=== PATIENT | female | born 1930 | race Caucasian/White ===

== ENCOUNTER 2018-05-12 03:21 | Observation (INO) | payer OTHER ==
--- OUTSIDE RECORDS SUMMARY | 2018-05-12 03:23 | XMS REPORT ---
:1930 [facility] Address [address] [place] [address] [place] [address] Care Team Providers Name Role Phone MIKAYLA ANNE Unavailable Unavailable Problems This patient has no known problems. Allergies, Adverse Reactions, Alerts This patient has no known allergies or adverse reactions. Medications This patient has no known medications. Results Test Description Test Time Test Comments Text Results Atomic Results Result Comments CT BRAIN [place] [address] Patient Name: TAI TOVAR MR #: [id number] : 1930 Age/Sex: 87/F Req #: [id number] Adm Physician: Ordered by: MIKAYLA ANNE MD Report #: [id number] Location: ER Room/Bed: Procedure: [id number] CT/CT BRAIN WO Exam Date: Exam Time: REPORT STATUS: Signed EXAMINATION: Head CT HISTORY: Chest pain COMPARISON: None. TECHNIQUE: Multidetector axial images were obtained without contrast from the foramen magnum to the vertex . The images were reconstructed using brain and bone algorithms. Thin section brain images were reformatted into coronal and sagittal planes. Intravenous contrast: None. Motion/streaking artifact limits the evaluation of the skull base and posterior cranial fossa. FINDINGS: Parenchyma: 1. Wedge-shaped cortico-subcortical hypodensity and volume loss/encephalomalacia in the right lateral occipito-temporal/inferior parietal region, likely sequela from remote infarct. 2. Few scattered and mildly confluent periventricular white matter hypodensities, most likely nonspecific chronic microvascular ischemic changes. 3. No mass or hemorrhage. No CT evidence of acute territorial vascular insult. Extra-axial spaces:No abnormal density. No extra-axial fluid collections Brain volume: Normal for age. Ventricles: No hydrocephalus or displacement. Arteries: No density suggestive of thrombus. Dural sinuses: No abnormal density. Extra-axial spaces: No abnormal density. Foramen magnum: No mass, Chiari malformation, or basilar invagination. Sella: No obvious mass. Paranasal/mastoid sinuses: Imaged portions unremarkable. Skull/Scalp: No lytic or blastic lesions. No fractures. IMPRESSION: 1. No acute intracranial hemorrhage or cortical infarcts. 2. Chronic right occipito-temporal infarct. 3. Mild white matter chronic microvascular ischemic changes. Signed by: Dr. Marcello Berman M.D. on 07/20/2017 12:35 AM Dictated By: MARCELLO BERMAN MD Transcribed By: JOSE on 07/20/1734 COPY TO: MIKAYLA ANNE MD [place] [address] Patient Name: TAI TOVAR MR #: [id number] : 1930 Age/Sex: 87/F E) Req #: [id number] Adm Physician: Ordered by: MIKAYLA ANNE MD Report #: [id number] Location: ER Room/Bed: Procedure: [id number] DX/CHEST SINGLE (PORTABLE) Exam Date: Exam Time: REPORT STATUS: Signed EXAM: CHEST SINGLE (PORTABLE), AP 1 view DATE: 07/19/2017 11:37 PM Time stamp on exam: 0013 hours INDICATION: Shortness of breath COMPARISON: None FINDINGS: LINES/TUBES: None LUNGS: Nonspecific bronchial thickening and bibasilar atelectasis. PLEURA: Possible small left pleural effusion. HEART AND MEDIASTINUM: The heart is within normal size limits for technique. Widening of the right paratracheal stripe is likely due to ectatic vasculature. Calcifications of the thoracic aorta. BONES AND SOFT TISSUES: No acute findings. IMPRESSION: Nonspecific bronchial thickening and bibasilar atelectasis. Possible small left pleural effusion. Findings could indicate mild fluid overload. Signed by: Dr. Harper Garcia M.D. on 07/20/2017 12:34 AM Dictated By: HARPER GARCIA MD Transcribed By: JOSE on 07/20/1733 COPY TO: MIKAYLA ANNE MD
[2018-05-12 03:53] LABS: Absolute Lymphocytes (CBC) 1.7 K/uL (0.7-4.9); Absolute Monocytes 0.6 K/uL (0.1-1.3); Absolute Neutrophil 6.6 K/uL (1.8-8.0); Basophils % 0.8 % (0-1.3); Eosinophils % 1.6 % (0-4.4); Hematocrit 33.4 % (36.0-45.0); Lymphocytes % 18.3 % (15.3-44.8); MCV 92.1 fL (80-100); MPV 8.3 fL (7.6-11.3); Monocytes % 6.6 % (3.3-12.3); RBC Red Blood Cell Count 3.63 M/uL (3.86-4.86)
[2018-05-12 03:54] LABS: Protime INR 1.39
[2018-05-12 04:13] LABS: Magnesium 1.8 mg/dL (1.8-2.4); Potassium 4.9 mmol/L (3.5-5.1)
--- NOTE | 2018-05-12 04:17 | ER ---
Nurse's Notes [facility] Name: Louise Khan Age: 87 yrs Sex: Female : 1930 Arrival Date: 05/12/2018 Time: 03:34 Bed 3 Private MD: Diagnosis: Cerebral infarction;Atrial fibrillation and flutter;Type 2 diabetes mellitus;Essential (primary) hypertension Presentation: 05/12 03:26 Presenting complaint: EMS states: that they were toned for blood sugar problems. Pt fc also complained of severe headache. Pt having left arm weakness with drift. BP of 196/110 with heart rate of 82. Pt on Cipro for UTI. Transition of care: patient was not received from another setting of care. An acute neurological deficit is present. The charge nurse has been notified. The patient has been moved to a treatment area. The patients blood glucose was checked prior to arriving to the hospital and was found to be hyperglycemic. The patient has been moved to a treatment room. Onset of symptoms was May 11, 2018 at 18:00. Risk Assessment: Do you want to hurt yourself or someone else? Patient reports no desire to harm self or others. Initial Sepsis Screen: Does the patient meet any 2 criteria? No. Patient's initial sepsis screen is negative. Does the patient have a suspected source of infection? No. Patient's initial sepsis screen is negative. Care prior to arrival: IV initiated. 20 GA, in the right antecubital area, Glucose check: 202. 03:26 Method Of Arrival: EMS: [facility] 03:26 Acuity: ZOE 2 fc Triage Assessment: 03:30 The onset of the patients symptoms was May 11, 2018 at 18:00. aa1 Stroke Activation: Symptom onset > 6 hours Physician: Stroke Attending; Name: ; Notified At: ; Arrived At: Physician: Chief Stroke Resident; Name: ; Notified At: ; Arrived At: Physician: Stroke Resident; Name: ; Notified At: ; Arrived At: Physician: ED Attending; Name: Warren; Notified At: 03:26; Arrived At: 03:26 Physician: ED Resident; Name: ; Notified At: ; Arrived At: Historical: - Allergies: 03:54 GARLIC; aa1 03:54 Sulfa (Sulfonamide Antibiotics); aa1 03:58 GARLIC; fc 03:58 Sulfa (Sulfonamide Antibiotics); fc - Home Meds: 03:58 Xarelto 15 mg oral tab daily [Active]; diclofenac sodium 25 mg oral TbEC 1 tab 2 times fc per day [Active]; cranberry oral oral three times a day [Active]; Fish Oil oral 1200 mg oral twice a day [Active]; calcium 600 mg twice a day [Active]; Vitamin B-12 100 mcg Oral tab daily [Active]; Evista 60 mg Oral tab 1 tab at lunch [Active]; lisinopril 20 mg Oral tab 1 tab once daily [Active]; glimepiride 4 mg Oral tab .5 tab at lunch time [Active]; atorvastatin 40 mg oral tab 1 tab at lunch [Active]; Senior Silver Centrum daily [Active]; Cinnamon 500 mg oral cap with dinner [Active]; atenolol 50 mg Oral tab 1 tab nightly [Active]; aspirin 81 mg Oral TbEC 2 tabs nightly [Active]; Vitamin C 500 mg Oral tab nightly [Active]; Benadryl 25 mg Oral cap 2 caps bedtime prn [Active]; - PMHx: 03:54 Atrial Fib; Diabetes - NIDDM; High Cholesterol; Hypertension; aa1 03:58 Atrial Fib; Diabetes - NIDDM; High Cholesterol; Hypertension; fc - PSHx: 03:54 Hernia repair; aa1 03:58 Cholecystectomy; Hernia repair; fc - Immunization history:: Last tetanus immunization: unknown, Pneumococcal vaccine is up to date. - Social history:: Smoking status: Patient/guardian denies using tobacco. - Ebola Screening: : Patient negative for fever greater than or equal to 101.5 degrees Fahrenheit, and additional compatible Ebola Virus Disease symptoms Patient denies exposure to infectious person Patient denies travel to an Ebola-affected area in the 21 days before illness onset. - Family history:: not pertinent. Screenin:28 The patient has not been NPO before screening. The patient is currently on the fc following diet: diabetic The patient is alert, able to follow commands. The patient does not exhibit slurred or garbled speech The patient is not exhibiting difficulty speaking. The patient does not exhibit difficulty understanding words. The patient is able to swallow own secretions with no drooling or need for suction. Patient tolerated one teaspoon of water. No drooling, immediate coughing, gurgling, or clearing of the throat was noted. The patient tolerated 90mL of water. No drooling, immediate coughing, gurgling, or clearing of the throat was noted. The patient passed the bedside swallow screening. Oral medications may be given as ordered. Contact Physician for further diet orders. Provider notified of bedside swallow screening results: Jose F Kelley MD. 03:44 Abuse screen: Denies threats or abuse. Nutritional screening: No deficits noted. fc Tuberculosis screening: No symptoms or risk factors identified. Fall Risk None identified. Assessment: 03:28 The patient has not been NPO before screening. The patient is alert, and able to follow commands. The patient does not exhibit slurred or garbled speech. The patient is not exhibiting difficulty speaking. The patient does not exhibit difficulty understanding words. The patient is able to swallow own secretions with no drooling or need for suction. Patient tolerated one teaspoon of water. No drooling, immediate coughing, gurgling, or clearing of the throat was noted. The patient tolerated 90mL of water. No drooling, immediate coughing, gurgling, or clearing of the throat was noted. The patient passed the bedside swallow screening. Oral medications may be given as ordered. Contact Physician for further diet orders. Provider notified of bedside swallow screening results: Jose F Kelley MD. 03:43 Reassessment: Patient appears in no apparent distress at this time. Pt back from CT. aa1 03:45 T-PA (Activase) Screening: Contraindications: Patient reports onset of signs and aa1 symptoms of stroke greater than 6 hours ago: Yes. Is the patient on Aspirin, Heparin, or Warfarin: Yes. Is the patient on a "statin" medication: Yes. 03:54 General: Appears in no apparent distress. comfortable, Behavior is calm, cooperative, aa1 appropriate for age. Pain: Complains of pain in head Pain currently is 9 out of 10 on a pain scale. Quality of pain is described as aching, throbbing, Pain began 1800 yesterday Is continuous. Neuro: Level of Consciousness is awake, alert, obeys commands, Oriented to person, place, time, situation, Principal Network Engineer are equal bilaterally Moves all extremities. Speech is normal, Facial droop on left, Pupils are PERRLA, Reports headache Denies blurred vision dizziness, paresthesias numbness photophobia. Cardiovascular: Denies chest pain, palpitations, Heart tones S1 S2 present Rhythm is regular. Respiratory: Airway is patent Respiratory effort is even, unlabored, Respiratory pattern is regular, symmetrical. GI: No signs and/or symptoms were reported involving the gastrointestinal system. : No signs and/or symptoms were reported regarding the genitourinary system. EENT: No signs and/or symptoms were reported regarding the EENT system. Derm: Skin is fragile, is thin, Skin is pink, warm \\T\\ dry. Musculoskeletal: Circulation, motion, and sensation intact. Capillary refill < 3 seconds. 04:30 Reassessment: Patient appears in no apparent distress at this time. Patient and/or aa1 family updated on plan of care and expected duration. Pain level reassessed. Patient is alert, oriented x 3, equal unlabored respirations, skin warm/dry/pink. Awaiting CT head angio. 04:35 Reassessment: Pt has received bed assignment but has not gone for additional CT yet. aa1 05:00 Reassessment: Pt uncooperative for additional CT. Will not lay on table and is aa1 screaming for staff to let her up. States, "I need some water to wash my mouth out and I just need to sit up for a minute." Pt pulling off monitoring equipment and attempting to climb off CT table. Unable to complete exam at this time. MD notified. 05:34 Reassessment: Patient appears in no apparent distress at this time. Patient is alert, aa1 oriented x 3, equal unlabored respirations, skin warm/dry/pink. Pt finished using restroom after sitting on the toilet for 30 mins. States she will attempt to do CT scan again if she can have a cough drop from her first. Pt taken to CT to reattempt scan. 05:55 Reassessment: Patient appears in no apparent distress at this time. Pt back from CT and aa1 was again unable to complete test. Pt refusing to lay flat on table despite MD stressing importance of completing exam. 06:08 Reassessment: Patient appears in no apparent distress at this time. Patient and/or aa1 family updated on plan of care and expected duration. Pain level reassessed. Patient is alert, oriented x 3, equal unlabored respirations, skin warm/dry/pink. Dr. Reveles at bedside for pt evaluation for admission. 06:20 Reassessment: Patient appears in no apparent distress at this time. Patient is alert, aa1 oriented x 3, equal unlabored respirations, skin warm/dry/pink. Report given to Nerissa Sky RN. Vital Signs: 03:26 BP 187 / 125; Pulse 79; Resp 18; Pulse Ox 97% on R/A; Weight 71.67 kg (R); Height 5 ft. fc 2 in. (157.48 cm) (R); Pain 6/10; 03:30 Temp 97.8(O); aa1 03:53 BP 186 / 101; Pulse 89; Resp 22; Pulse Ox 100% on R/A; Pain 9/10; aa1 04:30 BP 175 / 85; Pulse 94; Resp 16; Pulse Ox 97% on R/A; Pain 8/10; aa1 06:00 BP 177 / 87; Pulse 93; Resp 18; Pulse Ox 97% on R/A; Pain 0/10; aa1 03:26 Body Mass Index 28.90 (71.67 kg, 157.48 cm) fc NIH Stroke Scale Scores: 04:07 NIHSS Score: 3 bebeto ED Course: 03:26 Arm band placed on Patient placed in an exam room, on a stretcher, on personnel monitor, fc on pulse oximetry. 03:26 Patient has correct armband on for positive identification. Placed in gown. Bed in low aa1 position. Side rails up X2. bus monitor on. Pulse ox on. NIBP on. 03:26 Maintain EMS IV. Dressing intact. Good blood return noted. Site clean \\T\\ dry. Gauge \\T\\ fc site: 20 gauge to right a/c. 03:29 EKG done, by ED staff, reviewed by Jose F Kelley MD. aa1 03:34 Patient arrived in ED. ak1 03:34 Jose F Kelley MD is Attending Physician. bebeto 03:40 CT Stroke Brain w/o Contrast In Process Unspecified. EDMS 03:40 CT completed. Pt tolerated procedure poorly. Patient moved to CT via stretcher. Patient eh moved back from CT. 03:42 Lisa Lee, VALERIE is Primary Nurse. aa1 03:43 Triage completed. fc 03:45 Stroke CXR 1 View In Process Unspecified. EDMS 04:15 Bebe García MD is Hospitalizing Provider. bebeto 06:09 No provider procedures requiring assistance completed. Patient admitted, IV remains in aa1 place. Administered Medications: 04:25 Drug: NS 0.9% 500 ml Route: IV; Rate: bolus; Site: right antecubital; aa1 06:20 Follow up: IV Status: Completed infusion aa1 04:25 Drug: foLIC Acid 1 mg Route: IVPB; Site: right antecubital; aa1 06:19 Follow up: IV Status: Completed infusion aa1 04:30 Drug: Zofran 4 mg Route: IVP; Site: right antecubital; aa1 06:08 Follow up: Response: No adverse reaction; Nausea is decreased aa1 Point of Care Testing: Blood Glucose: 03:29 Blood Glucose: 197 mg/dL; fc Ranges: Outcome: 04:16 Decision to Hospitalize by Provider. bebeto 06:20 Admitted to Tele accompanied by nurse, accompanied by tech, family with patient, via aa1 wheelchair, room 428, with chart, Report called to Nerissa Sky RN 06:20 Condition: stable 06:20 Instructed on the need for admit, Demonstrated understanding of instructions. 06:26 Patient left the ED. aa1 NIH Stroke Scale - NIH Stroke Score Date: 05/12/2018 Time: 04:07 Total Score = 3 1a. Level of Consciousness (LOC) - 0(Alert) 1b. Level of Consciousness (LOC) (Year \\T\\ Age) - 0(Both) 1c. LOC Commands (Open \\T\\ Closes Eyes/Vinyl Cutter) - 0(Both) 2. Best Gaze (Lateral Gaze Paresis) - 0(Normal) 3. Visual Field Loss - 0(No visual loss) 4. Facial Palsy - 0(Normal) 5a. Left Arm: Motor (10-second hold) - 1(Drift) 5b. Right Arm: Motor (10-second hold) - 0(No drift) 6a. Left Leg: Motor (5-second hold - always test supine) - 0(No drift) 6b. Right Leg: Motor (5-second hold - always test supine) - 0(No drift) 7. Limb Ataxia (finger/nose \\T\\ heel/rico - test with eyes open) - 1(Present in one limb) 8. Sensory Loss (pinprick arms/legs/face) - 0(Normal) 9. Best Language: Aphasia (description/naming/reading) - 0(No aphasia) 10. Dysarthria (speech clarity - read or repeat words) - 0(Normal) 11. Extinction and Inattention (visual/tactile/auditory/spatial/personal) - 1(Present) Initials: bebeto Signatures: Dispatcher [employer] Lisa Raymond RN RN aa1 Jose F Kelley MD MD cha Hagler, Ervin eh Chretien, Felicia, RN RN fc Alisia Diaz RN RN ak1
--- NOTE | 2018-05-12 04:17 | EDPHYS ---
Physician Documentation [facility] Name: Louise Khan Age: 87 yrs Sex: Female : 1930 Arrival Date: 05/12/2018 Time: 03:34 Bed 3 Private MD: ED Physician Jose F Kelley HPI: 05/12 03:56 This 87 yrs old Female presents to ER via EMS with complaints of S/S of bebeto Possible Stroke. 03:56 This 87 yrs old Female presents to ER via EMS with complaints of S/S of bebeto Possible Stroke. 03:56 The patient's problem is reported as a facial droop, on left, dysphasia, slow speech, bebeto expressive aphasia. Onset: The symptoms/episode began/occurred 9 hour(s) ago. Duration: The episode is continuous. Context: the episode(s) was witnessed, by family, . The symptoms are alleviated by nothing. The symptoms are aggravated by nothing. Associated signs and symptoms: The patient has no apparent associated signs or symptoms. Severity of symptoms: At their worst the symptoms were mild in the emergency department the symptoms are unchanged. Patient's baseline: Neuro: alert and fully oriented. The patient has not experienced similar symptoms in the past. Historical: - Allergies: 03:54 GARLIC; aa1 03:54 Sulfa (Sulfonamide Antibiotics); aa1 03:58 GARLIC; fc 03:58 Sulfa (Sulfonamide Antibiotics); fc - Home Meds: 03:58 Xarelto 15 mg oral tab daily [Active]; diclofenac sodium 25 mg oral TbEC 1 tab 2 times fc per day [Active]; cranberry oral oral three times a day [Active]; Fish Oil oral 1200 mg oral twice a day [Active]; calcium 600 mg twice a day [Active]; Vitamin B-12 100 mcg Oral tab daily [Active]; Evista 60 mg Oral tab 1 tab at lunch [Active]; lisinopril 20 mg Oral tab 1 tab once daily [Active]; glimepiride 4 mg Oral tab .5 tab at lunch time [Active]; atorvastatin 40 mg oral tab 1 tab at lunch [Active]; Senior Silver Centrum daily [Active]; Cinnamon 500 mg oral cap with dinner [Active]; atenolol 50 mg Oral tab 1 tab nightly [Active]; aspirin 81 mg Oral TbEC 2 tabs nightly [Active]; Vitamin C 500 mg Oral tab nightly [Active]; Benadryl 25 mg Oral cap 2 caps bedtime prn [Active]; - PMHx: 03:54 Atrial Fib; Diabetes - NIDDM; High Cholesterol; Hypertension; aa1 03:58 Atrial Fib; Diabetes - NIDDM; High Cholesterol; Hypertension; fc - PSHx: 03:54 Hernia repair; aa1 03:58 Cholecystectomy; Hernia repair; fc - Immunization history:: Last tetanus immunization: unknown, Pneumococcal vaccine is up to date. - Social history:: Smoking status: Patient/guardian denies using tobacco. - Ebola Screening: : Patient negative for fever greater than or equal to 101.5 degrees Fahrenheit, and additional compatible Ebola Virus Disease symptoms Patient denies exposure to infectious person Patient denies travel to an Ebola-affected area in the 21 days before illness onset. - Family history:: not pertinent. ROS: 03:56 Constitutional: Negative for fever, chills, and weight loss, Eyes: Negative for injury, bebeto pain, redness, and discharge, ENT: Negative for injury, pain, and discharge, Neck: Negative for injury, pain, and swelling, Cardiovascular: Negative for chest pain, palpitations, and edema, Respiratory: Negative for shortness of breath, cough, wheezing, and pleuritic chest pain, Abdomen/GI: Negative for abdominal pain, nausea, vomiting, diarrhea, and constipation, Back: Negative for injury and pain, : Negative for injury, bleeding, discharge, and swelling, MS/Extremity: Negative for injury and deformity, Skin: Negative for injury, rash, and discoloration, Psych: Negative for depression, anxiety, suicide ideation, homicidal ideation, and hallucinations, Allergy/Immunology: Negative for hives, rash, and allergies, Endocrine: Negative for neck swelling, polydipsia, polyuria, polyphagia, and marked weight changes, Hematologic/Lymphatic: Negative for swollen nodes, abnormal bleeding, and unusual bruising. 03:56 Neuro: Positive for weakness, of the face, left arm and left leg. Exam: 03:56 Radiologist reports: see report, no blood, old changes bebeto 03:56 Constitutional: This is a well developed, well nourished patient who is awake, alert, and in no acute distress. Eyes: Pupils equal round and reactive to light, extra-ocular motions intact. Lids and lashes normal. Conjunctiva and sclera are non-icteric and not injected. Cornea within normal limits. Periorbital areas with no swelling, redness, or edema. ENT: Nares patent. No nasal discharge, no septal abnormalities noted. Tympanic membranes are normal and external auditory canals are clear. Oropharynx with no redness, swelling, or masses, exudates, or evidence of obstruction, uvula midline. Mucous membranes moist. Neck: Trachea midline, no thyromegaly or masses palpated, and no cervical lymphadenopathy. Supple, full range of motion without nuchal rigidity, or vertebral point tenderness. No Meningismus. Chest/axilla: Normal chest wall appearance and motion. Nontender with no deformity. No lesions are appreciated. Cardiovascular: Regular rate and rhythm with a normal S1 and S2. No gallops, murmurs, or rubs. Normal PMI, no JVD. No pulse deficits. Respiratory: Lungs have equal breath sounds bilaterally, clear to auscultation and percussion. No rales, rhonchi or wheezes noted. No increased work of breathing, no retractions or nasal flaring. Abdomen/GI: Soft, non-tender, with normal bowel sounds. No distension or tympany. No guarding or rebound. No evidence of tenderness throughout. Back: No spinal tenderness. No costovertebral tenderness. Full range of motion. Female : Normal external genitalia. Skin: Warm, dry with normal turgor. Normal color with no rashes, no lesions, and no evidence of cellulitis. Psych: Awake, alert, with orientation to person, place and time. Behavior, mood, and affect are within normal limits. 03:56 Head/face: Exam is negative for acute changes. 03:56 Musculoskeletal/extremity: ROM: limited active range of motion, in the left arm. 03:56 Neuro: Orientation: is normal, appropriate for stated age, no acute changes, Mentation: is normal, appropriate for stated age, no acute changes, Memory: is normal, appropriate for stated age, no acute changes, Cranial nerves: grossly normal, is grossly normal based on the patient's age, no acute changes, Cerebellar function: dysmetria is noted on the left, Motor: moves all fours, strength is 4/5 in the left arm and left leg, Gait: not tested. Deep tendon reflexes are 2+ (normal) in the bilateral brachioradialis, bicep, tricep and patellar and Achilles tendons, seizure activity, is not displayed by the patient. Vital Signs: 03:26 BP 187 / 125; Pulse 79; Resp 18; Pulse Ox 97% on R/A; Weight 71.67 kg (R); Height 5 ft. fc 2 in. (157.48 cm) (R); Pain 6/10; 03:30 Temp 97.8(O); aa1 03:53 BP 186 / 101; Pulse 89; Resp 22; Pulse Ox 100% on R/A; Pain 9/10; aa1 04:30 BP 175 / 85; Pulse 94; Resp 16; Pulse Ox 97% on R/A; Pain 8/10; aa1 06:00 BP 177 / 87; Pulse 93; Resp 18; Pulse Ox 97% on R/A; Pain 0/10; aa1 03:26 Body Mass Index 28.90 (71.67 kg, 157.48 cm) NIH Stroke Scale Scores: 04:07 NIHSS Score: 3 bebeto MDM: 03:34 Patient medically screened. bebeto 03:56 Data reviewed: vital signs, nurses notes, lab test result(s), EKG, radiologic studies, [facility] CT scan, plain films. 05/12 03:35 Order name: Troponin (emerg Dept Use Only); Complete Time: 05:22 [facility] 05/12 03:35 Order name: Magnesium; Complete Time: 05:22 [facility] 05/12 03:35 Order name: Basic Metabolic Panel; Complete Time: 05:22 [facility] 05/12 03:35 Order name: CBC with Diff; Complete Time: 03:55 [facility] 05/12 03:35 Order name: Protime (+inr); Complete Time: 04:06 [facility] 05/12 03:35 Order name: Ptt, Activated; Complete Time: 04:06 [facility] 05/12 03:35 Order name: CT Stroke Brain w/o Contrast [facility] 05/12 03:35 Order name: Stroke CXR 1 View [facility] 05/12 04:09 Order name: Head angio [facility] 05/12 05:31 Order name: Urine Dipstick--Ancillary (enter results) rg2 05/12 06:00 Order name: Urine Dipstick-Ancillary [facility] 05/12 03:35 Order name: EKG; Complete Time: 03:35 05/12 03:35 Order name: Accucheck; Complete Time: 03:41 05/12 03:35 Order name: Cardiac monitoring; Complete Time: 03:41 05/12 03:35 Order name: EKG - Nurse/Tech; Complete Time: 03:41 05/12 03:35 Order name: IV Saline Lock; Complete Time: 03:41 05/12 03:35 Order name: Labs collected and sent; Complete Time: 03:41 05/12 03:35 Order name: NPO; Complete Time: 03:41 05/12 03:35 Order name: O2 Per Protocol; Complete Time: 03:42 05/12 03:35 Order name: O2 Sat Monitoring; Complete Time: 03:42 05/12 03:35 Order name: Stroke Swallow Screen; Complete Time: 03:42 05/12 03:35 Order name: Urine Dipstick-Ancillary (obtain specimen); Complete Time: 05:59 05/12 04:21 Order name: CONS Physician Consult EDMS Administered Medications: 04:25 Drug: NS 0.9% 500 ml Route: IV; Rate: bolus; Site: right antecubital; aa1 06:20 Follow up: IV Status: Completed infusion aa1 04:25 Drug: foLIC Acid 1 mg Route: IVPB; Site: right antecubital; aa1 06:19 Follow up: IV Status: Completed infusion aa1 04:30 Drug: Zofran 4 mg Route: IVP; Site: right antecubital; aa1 06:08 Follow up: Response: No adverse reaction; Nausea is decreased aa1 Point of Care Testing: Blood Glucose: 03:29 Blood Glucose: 197 mg/dL; fc Ranges: Critical Glucose Levels:Adult <50 mg/dl or >400 mg/dl <40 mg/dl or >180 mg/dl Disposition: 05/12/18 04:16 Hospitalization ordered by Bebe García for Inpatient Admission. Preliminary diagnosis are Cerebral infarction, Atrial fibrillation and flutter, Type 2 diabetes mellitus, Essential (primary) hypertension. - Bed requested for Telemetry/MedSurg (Inpatient). - Status is Inpatient Admission. aa1 - Condition is Fair. - Problem is new. - Symptoms have improved. UTI on Admission? No NIH Stroke Scale - NIH Stroke Score Date: 05/12/2018 Time: 04:07 Total Score = 3 1a. Level of Consciousness (LOC) - 0(Alert) 1b. Level of Consciousness (LOC) (Year \T\ Age) - 0(Both) 1c. LOC Commands (Open \T\ Closes Eyes/Bag Machine Set Up Operator) - 0(Both) 2. Best Gaze (Lateral Gaze Paresis) - 0(Normal) 3. Visual Field Loss - 0(No visual loss) 4. Facial Palsy - 0(Normal) 5a. Left Arm: Motor (10-second hold) - 1(Drift) 5b. Right Arm: Motor (10-second hold) - 0(No drift) 6a. Left Leg: Motor (5-second hold - always test supine) - 0(No drift) 6b. Right Leg: Motor (5-second hold - always test supine) - 0(No drift) 7. Limb Ataxia (finger/nose \T\ heel/rico - test with eyes open) - 1(Present in one limb) 8. Sensory Loss (pinprick arms/legs/face) - 0(Normal) 9. Best Language: Aphasia (description/naming/reading) - 0(No aphasia) 10. Dysarthria (speech clarity - read or repeat words) - 0(Normal) 11. Extinction and Inattention (visual/tactile/auditory/spatial/personal) - 1(Present) Initials: bebeto Signatures: Dispatcher [employer] EDMS Roslyn Sparks RN RN Lisa Lee RN RN aa1 Jose F Kelley MD MD cha Chretien, Felicia, RN RN fc Corrections: (The following items were deleted from the chart) 04:17 04:16 Hospitalization Ordered by Bebe García MD for Inpatient Admission. bebeto Preliminary diagnosis is Cerebral infarction; Atrial fibrillation and flutter; Type 2 diabetes mellitus. Bed requested for Telemetry/MedSurg (Inpatient). Status is Inpatient Admission. Condition is Fair. Problem is new. Symptoms have improved. UTI on Admission? No. bebeto 04:34 04:17 05/12/2018 04:16 Hospitalization Ordered by Bebe García MD for Inpatient Admission. Preliminary diagnosis is Cerebral infarction; Atrial fibrillation and flutter; Type 2 diabetes mellitus; Essential (primary) hypertension. Bed requested for Telemetry/MedSurg (Inpatient). Status is Inpatient Admission. Condition is Fair. Problem is new. Symptoms have improved. UTI on Admission? No. bebeto 06:26 04:34 05/12/2018 04:16 Hospitalization Ordered by Bebe García MD for aa1 Inpatient Admission. Preliminary diagnosis is Cerebral infarction; Atrial fibrillation and flutter; Type 2 diabetes mellitus; Essential (primary) hypertension. Bed requested for Telemetry/MedSurg (Inpatient). Status is Inpatient Admission. Condition is Fair. Problem is new. Symptoms have improved. UTI on Admission? No. mw
[2018-05-12] MEDS ORDERED: ONDANSETRON 4 MG/2 ML VIAL ONE (04:26)
[2018-05-12] MEDS ORDERED: NA CHLORIDE 0.9% 500 ML ONE (04:26)
[2018-05-12] MEDS ORDERED: FOLIC ACID 5 MG/ML VIAL ONE (04:28)
[2018-05-12 06:00] LABS: Urine Blood NEGATIVE (NEG); Urine Glucose NEGATIVE (NEG); Urine Protein TRACE (NEG)
--- NOTE | 2018-05-12 06:22 | P.HP ---
Certification for Inpatient Patient admitted to: Inpatient With expected LOS: >2 Midnights Practitioner: I am a practitioner with admitting privileges, knowledge of patient current condition, hospital course, and medical plan of care. Services: Services provided to patient in accordance with Admission requirements found in Title 42 Section 412.3 of the Code of Federal Regulations Patient History Date of Service: 05/12/18 Reason for admission: CVA History of Present Illness: Ms Khan is an 87 years old woman with history of HTN, DM II, dyslipidemia, paroxysmal A.Fib on xarelto, who start with left facial drop associated with left arm weakness, around 1800 last evening. She also states that has had slurred speech. She initially thought that it was secondary to high blood sugar. EMS found the patient hypertensive 196/110. She was transferred to ED and code stroke was activated. CT head was remarkable for right encephalomalacia in the occipital lobe. No signs of acute bleeding. At the time of my examination the patient still had left facial drop, but she resolved slurred speech and left arm hemiparesis. Allergies GARLIC Allergy (Uncoded 11/03/17 07:35) Unknown Sulfa (Sulfonamide Allergy (Uncoded 05/12/18 06:30) Unknown Sulfa (Sulfonamide Antibioti Allergy (Uncoded 11/03/17 07:35) Unknown Home medications list reviewed: Yes - Past Medical/Surgical History -: HTN -: paroxysmal A.Fib -: dyslipidemia -: diabetes mellitus -: hernia repair -: cholecystectomy Review of Systems 10-point ROS is otherwise unremarkable Physical Examination - Physical Exam General: Alert, In no apparent distress HEENT: Atraumatic, PERRLA, Mucous membr. moist/pink, EOMI, Sclerae nonicteric Neck: Supple, 2+ carotid pulse no bruit, No LAD, Without JVD or thyroid abnormality Respiratory: Clear to auscultation bilaterally, Normal air movement Cardiovascular: Regular rate/rhythm, Normal S1 S2 Gastrointestinal: Normal bowel sounds, No tenderness Musculoskeletal: No tenderness Integumentary: No rashes Neurological: Normal speech, Normal strength at 5/5 x4 extr, Normal tone, Normal affect, Other (left facial drop noted) Lymphatics: No axilla or inguinal lymphadenopathy - Studies Laboratory Data (last 24 hrs) 05/12/18 03:30: PT 16.5 H, INR 1.39, APTT 31.3 05/12/18 03:30: WBC 9.0, Hgb 11.6 L, Hct 33.4 L, Plt Count 254 05/12/18 03:30: Sodium 132 L, Potassium 4.9, BUN 16, Creatinine 1.20, Glucose 189 H, Magnesium 1.8 Assessment and Plan - Problems (Diagnosis) (1) HTN (hypertension) Current Visit: Yes Status: Acute Qualifiers: Hypertension type: essential hypertension Qualified Code(s): I10 - Essential (primary) hypertension (2) CVA (cerebral vascular accident) Current Visit: Yes Status: Acute Qualifiers: CVA mechanism: unspecified Qualified Code(s): I63.9 - Cerebral infarction, unspecified (3) Diabetes mellitus Current Visit: Yes Status: Acute Qualifiers: Diabetes mellitus type: type 2 Diabetes mellitus shelter insulin use: without terminal supervisor use Diabetes mellitus complication status: with unspecified complications Qualified Code(s): E11.8 - Type 2 diabetes mellitus with unspecified complications (4) Dyslipidemia Current Visit: Yes Status: Acute (5) Paroxysmal A-fib Current Visit: Yes Status: Acute - Plan The patient will be admitted to the hospital due to acute CVA vs TIA. She did not received Thrombolitics therapy since she was outside the window, also relative contraindications age over 80 and anticoagulatnt therapy. Will continue with the stroke protocol orders, consult Dr Segovia. Pending CT head angiogram. Will order plavix since she was already on ASA. Pending ECHO and carotid doppler. - Advance Directives Does patient have a Living Will: No Does patient have a Durable POA for Healthcare: No - Code Status/Comfort Care Code Status Assessed: Yes Code Status: Full Code
--- NOTE | 2018-05-12 06:30 | EKG ---
Test Date: 2018-05-12 Test Time: 03:27:10 Carton Counter Feeder: HUNTER MEASUREMENT RESULTS: Intervals: Rate: 78 TX: 136 QRSD: 76 QT: 372 QTc: 424 [place]: P: 37 TX: 136 QRS: -2 T: 47 INTERPRETIVE STATEMENTS: Normal sinus rhythm Minimal voltage criteria for LVH, may be normal variant Borderline ECG Compared to ECG 11/03/2017 04:46:27 Left ventricular hypertrophy now present Atrial fibrillation no longer present Myocardial infarct finding no longer present Electronically Signed On 05-12-18 06:29:35 CDT by Darion Rodriguez
[2018-05-12] MEDS ORDERED: D50W 25 GM/50 ML SYRINGE IV PRN (06:47)
[2018-05-12] MEDS ORDERED: GLUCAGON 1 MG/VIAL IM PRN (06:47)
[2018-05-12] MEDS ORDERED: INSULIN -REGULAR HUMAN 50 UNIT/0.5 ML ML SQ SCH (07:30)
[2018-05-12] MEDS ORDERED: Magnesium Sulfate 1gm IVPB 1 GM/50 ML BAG IV ONE (07:45)
[2018-05-12] MEDS: Ciprofloxacin 200mg IV 200 MG/100 ML IV.SOLN. IV SCH ×2 (08:46→21:04)
[2018-05-12] MEDS: ONDANSETRON 4 MG/2 ML VIAL IV PRN (08:47)
[2018-05-12] MEDS ORDERED: CLOPIDOGREL 75 MG TABLET PO SCH (09:00)
--- NOTE | 2018-05-12 09:01 | RAD REPORT ---
EXAM DESCRIPTION: CT - Ct Stroke Brain Wo Cont - 05/12/2018 6:45 am CLINICAL HISTORY: cva COMPARISON: No comparisons TECHNIQUE: All CT scans are performed using dose optimization technique as appropriate and may inclu de automated exposure control or mA/KV adjustment according to patient size. FINDINGS: No intracranial hemorrhage, hydrocephalus or extra-axial fluid collection.Mild generalized brain atrophy is present with mild periventricular and deep white matter chronic microvascular ische denise changes.Moderate area of gliosis is noted in the right parietal lobe most likely representing pre vious CVA. The paranasal sinuses and mastoids are clear. The calvarium is intact. IMPRESSION: No acute intracranial abnormality. Evidence of previous right parietal CVA. A preliminary written report was provided at the time of the study, and the report was reviewed prio r to final dictation.
--- NOTE | 2018-05-12 09:02 | RAD REPORT ---
EXAM DESCRIPTION: RAD - Chest Single View - 05/12/2018 3:46 am CLINICAL HISTORY: cva Chest pain. COMPARISON: No comparisons FINDINGS: Portable technique limits examination quality. 2 cm rounded opacity is seen in the medial right upper lobe. A pulmonary mass is possible in this loc ation. The heart is normal in size. No displaced fractures.Aortic atherosclerosis. IMPRESSION: 2 cm opacity in the medial right upper lobe noted. CT chest followup is recommended.
[2018-05-12] MEDS ORDERED: LORazepam 2 MG/ML VIAL IV ONE ×2 (09:03→10:44)
[2018-05-12] MEDS: INSULIN -REGULAR HUMAN 50 UNIT/0.5 ML ML SQ SCH ×2 (12:00→17:41)
--- NOTE | 2018-05-12 14:20 | RAD REPORT ---
EXAM DESCRIPTION: MRI - Stroke Protocol - 05/12/2018 1:55 pm CLINICAL HISTORY: CVA COMPARISON: May 12 CAT scan TECHNIQUE: Axial, sagittal and coronal magnetic resonance images of the brain were obtained. Fifteen cc MultiHance was administered. Magnetic resonance angiography of the head and neck was performed. S ource images were reviewed and reconstructed at 360 degrees rotation. FINDINGS: The examination is suboptimal secondary to patient motion artifact A 6 centimeter area of abnormal signal is present within the right temporal lobe consistent with an o ld infarct. T1 weighted sequences demonstrate curvilinear areas of increased signal compatible with l aminar necrosis. Diffusion-weighted/ADC mapping does not reveal evidence of an acute infarction. The ventricles are normal caliber an extra-axial fluid collection is not seen. No abnormal enhancemen t is noted Fluid within the sinuses/mastoids is not seen The evaluation of the left common and proximal left internal carotid artery is suboptimal. A signific ant stenosis is not seen within the carotid arteries. The left vertebral artery is a little bit more dominant than the right. Anterior cerebral, middle cerebral, posterior cerebral, distal internal carotid and basilar arteries do not demonstrate a significant abnormality. origin of the right posterior cerebral artery is present. 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
[2018-05-12] MEDS: NA CHLORIDE 0.9% 1,000 ML IV SCH (15:41)
--- NOTE | 2018-05-12 19:46 | RAD REPORT ---
EXAM DESCRIPTION: VASCarotid Artery Bilateral05/12/2018 11:06 am CLINICAL HISTORY: CVA COMPARISON: None FINDINGS: The velocity of the right internal carotid artery equals 100 cm/sec. The right ICA/CCA rat io 2.3 The velocity of the left internal carotid artery equals 60 cm/sec. The left ICA/CCA ratio 1.4 Mild plaque is present within the carotid arteries. The vertebral arteries demonstrate antegrade flow IMPRESSION: Mild plaque within the carotid arteries without evidence of a hemodynamically significan t stenosis
[2018-05-12] MEDS: ATORVASTATIN 20 MG TAB PO SCH (21:00)
--- NOTE | 2018-05-12 21:50 | PN ---
Date of Progress Note: 05/12/2018 Subjective: The patient is seen and examined. Chart reviewed and case discussed with RN and Dr. Marycruz love. The patient had to be sedated to go to MRI. Daughter is at the bedside. Treatment plan explain ed. All questions answered. Overall, the patient states her symptoms are better. Review of Systems: Negative except as per HPI. Medications: List reviewed. Physical Examination: Vital signs: Temperature 98.3, heart rate 89, blood pressure 176/96, respirations 18, O2 94% on room air. General: Awake, alert, oriented x3, not in any acute distress. CV: S1, S2. No murmurs. Regular rate and rhythm. Peripheral pulses present. Respiratory: Clear to auscultation bilaterally. No wheezing. No use of accessory muscles Gastroint estinal: Abdomen is soft, nontender, nondistended. Positive bowel sounds. Extremities: No clubbing, cyanosis, or edema. Neurologic: Nonfocal. Laboratory Data: Sodium 132, potassium 4.9, chloride 99, CO2 25, BUN 16, creatinine 1.2, glucose 189 , calcium 9.2, magnesium 1.8. WBC 9, H and H 11.6 and 33.4, platelets 254. MRA and MRI of the neck shows old right temporal lobe infarct with laminar necrosis. No acute infarct. No acute abnormaliti es of the arteries of the head and neck are seen. Carotid artery ultrasound is pending. Assessment: 1.Rule out cerebrovascular accident. 2.Essential hypertension. 3.Diabetes mellitus type 2, with long-term use of insulin with hyperglycemia. 4.Dyslipidemia. 5.Paroxysmal atrial fibrillation. 6.Gastrointestinal and deep venous thrombosis prophylaxis with PPI and Lovenox. Plan: 1.We will continue workup for cerebrovascular accident. MRI is negative. 2.Blood pressure is not well controlled. We will resume home medications, as there is no acute cere brovascular accident. 3.Lipid panel is normal. We will continue statin. We will follow up with Dr. Segovia's recommendatio ns. 4.Continue sliding scale insulin and Accu-Cheks for diabetes. 5.Continue cardiac telemetry. 6.Likely discharge in the next 24 to 48 hours. /MODL Voice ID: [id number] Report ID: [id number]
--- NOTE | 2018-05-12 22:54 | RAD REPORT ---
EXAM DESCRIPTION: CT - Thorax Wo Con CLINICAL HISTORY: Chest pain lung mass COMPARISON: Chest Single View dated 05/12/2018 FINDINGS: Prominent emphysematous and fibrotic changes are present throughout the lungs. No discrete lung mass is seen. The innominate artery is very tortuous, likely causing the abnormality in the med ial right upper lobe seen on chest radiograph. Moderate atherosclerosis is present involving the thor acic aorta. No axillary, mediastinal or hilar adenopathy. No significant pericardial or pleural fluid. Prominent thoracic spondylosis. No gross upper abdominal finding. All CT scans are performed using dose optimization technique as appropriate and may include automated exposure control or mA/KV adjustment according to patient size. IMPRESSION: A lung mass is not present.Recent chest radiograph abnormality is likely caused by a laisha y tortuous innominate artery.
--- NOTE | 2018-05-13 01:09 | CON ---
Date of Consultation: 05/12/2018 Reason: Stroke/Transient ischemic attack History: An 87-year-old lady with a history of paroxysmal atrial fibrillation, hypertension, diabete s, hyperlipidemia. Denies history of prior stroke, but has an area of gliosis in the right temporooc cipital region on imaging, brought to the emergency department for onset of left-sided weakness, arm, leg, and face, approximately at 1800 on the 9th. Presented to the emergency department at 4 o'clock in the morning, outside window for tPA. I recommended a stat CT angiogram, but the patient had a br ain MRI, that was done in a relatively short time frame as well, that demonstrated no evidence of acu te stroke and no large vessel occlusion. There was a significant area of encephalomalacia in the rig ht temporal lobe. Intracranial vessels are normal. The patient is normally on 15 mg Xarelto daily. She is on Plavix currently. She appears to be well back to baseline. LDL is 69. She is already on a statin. Consultation was requested. Past Medical History: As alluded to. Medications: Does not seem to be completely accurate and as listed in her EMR, as Xarelto is not jim n on her home medication list. Currently, Lipitor 40, Amaryl, Prinivil 20, Evista 60. Allergies: SULFA. Social History: Does not drink. Normally independent with activities of daily living. Family History: Noncontributory. Review of Systems: Generally well. Eyes: She has vision loss on the left. Ears Nose Throat: Negative. Cardiovascular: As alluded to. Pulmonary: Negative. GI: Negative. : Negative. Musculoskeletal: Negative. Neurologic: As noted. Endocrine: Diabetes. Hematologic: On Xarelto. Physical Examination: Vital Signs: She is afebrile. Vitals are stable. Neuro: She is awake, alert, oriented. Pupils reactive. Ocular motion full. Left hemianopsia to con frontation. Facial sensation intact. Slight decrease in left nasolabial fold. Extremities: Reveals full strength. Sensation intact. No cortical extinction. Reflexes 1/4. Toes are downgoing. Cerebellar exam demonstrates no ataxia. Pertinent Laboratory Data: Chest x-ray, 2 cm middle lobe opacity, concerning for mass. Brain MRI as noted. Impression: Transient ischemic attack versus seizure. Plan: 1.Restart Xarelto. She states she is taking it in the morning, but it is normally given in the even ings here, that will need to reviewed with the patient by nursing staff. 2.Check an EEG. 3.Check a CT scan of the chest, given the pulmonary nodule. 4.GFR is 43, so the 15 mg Xarelto would be the appropriate dose. We will continue to follow with you. TINO Voice ID: [id number] Report ID: [id number]
[2018-05-13 04:34] LABS: Absolute Lymphocytes (CBC) 1.7 K/uL (0.7-4.9); Absolute Monocytes 0.6 K/uL (0.1-1.3); Absolute Neutrophil 4.5 K/uL (1.8-8.0); Basophils % 1.2 % (0-1.3); Eosinophils % 3.9 % (0-4.4); Hematocrit 29.9 % (36.0-45.0); Lymphocytes % 24.1 % (15.3-44.8); MCH 31.6 pg (27.0-35.0); MCV 91.5 fL (80-100); MPV 8.1 fL (7.6-11.3); Monocytes % 8.3 % (3.3-12.3); RBC Red Blood Cell Count 3.27 M/uL (3.86-4.86)
[2018-05-13 04:57] LABS: Albumin 2.9 g/dL (3.4-5.0); Bilirubin Total 0.6 mg/dL (0.2-1.0); Magnesium 1.8 mg/dL (1.8-2.4); Protein, Total 6.5 g/dL (6.4-8.2)
[2018-05-13] MEDS: NA CHLORIDE 0.9% 1,000 ML IV SCH ×2 (05:22→17:38)
[2018-05-13] MEDS: INSULIN -REGULAR HUMAN 50 UNIT/0.5 ML ML SQ SCH ×5 (05:22→21:00)
[2018-05-13] MEDS ORDERED: MAGNESIUM SULFATE 1 gm IVPB 1 GM/100 ML BAG IV ONE ×3 (05:43→08:00)
--- NOTE | 2018-05-13 07:31 | ECHO ---
HEIGHT: 5 ft 2 in WEIGHT: 155 lb 0 oz DATE OF STUDY: 05/12/[address]: Bebe Reveles MD 2-DIMENSIONAL: YES M.MODE: YES DOPPLER: YES COLOR FLOW: YES TDS: YES PORTABLE: DEFINITY: BUBBLE STUDY: DIAGNOSIS: STROKE CARDIAC HISTORY: CATHERIZATION: NO SURGERY: NO PROSTHETIC VALVE: NO PACEMAKER: NO MEASUREMENTS (cm) DIASTOLIC (NORMALS) SYSTOLIC (NORMALS) IVSd 1.2 (0.6-1.2) LA Diam 3.5 (1.9-4.0) LVEF 61% LVIDd 3.9 (3.5-5.7) LVIDs 2.7 (2.0-3.5) %FS 32% LVPWd 1.2 (0.6-1.2) Ao Diam 2.5 (2.0-3.7) 2 DIMENSIONAL ASSESSMENT: RIGHT ATRIUM: NORMAL LEFT ATRIUM: NORMAL RIGHT VENTRICLE: NORMAL LEFT VENTRICLE: LEFT VENTRICULAR HYPERTROPHY TRICUSPID VALVE: NORMAL MITRAL VALVE: MITRAL ANNULAR CALCIFICATION PULMONIC VALVE: NORMAL AORTIC VALVE: STENOTIC PERICARDIAL EFFUSION: NONE AORTIC ROOT: NORMAL LEFT VENTRICULAR WALL MOTION: NORMAL DOPPLER/COLOR FLOW: MILD AORTIC STENOSIS 1.6 CENTIMETERS SQUARED. COMMENTS: LEFT VENTRICULAR HYPERTROPHY CONCENTRIC. NORMAL EJECTION FRACTION. MILD AORTIC STENOSIS AREA 1.6 CENTIMETERS SQUARED. MITRAL ANNULAR CALCIFICATION. NO THROMBUS. TECHNOLOGIST: TIESHA ADKINS
[2018-05-13] MEDS: Magnesium Sulfate 1gm IVPB 1 GM/50 ML BAG IV ONE ×2 (07:36→10:21)
[2018-05-13] MEDS: ATENOLOL 50 MG TAB PO SCH (08:59)
[2018-05-13] MEDS: RALOXIFENE HCL 60 MG TAB PO SCH (08:59)
[2018-05-13] MEDS ORDERED: HOME MED 1 EA UNK (Glimepiride [Glimepiride] 2 MG) PO SCH (09:00)
[2018-05-13] MEDS: GLIMEPIRIDE 2 MG TABLET PO SCH (09:00)
[2018-05-13] MEDS: Ciprofloxacin 200mg IV 200 MG/100 ML IV.SOLN. IV SCH ×2 (09:00→20:35)
[2018-05-13] MEDS: LISINOPRIL 20 MG TAB PO SCH (09:00)
[2018-05-13] MEDS ORDERED: D50W 25 GM/50 ML SYRINGE IV PRN (11:06)
[2018-05-13] MEDS ORDERED: GLUCAGON 1 MG/VIAL IM PRN (11:06)
[2018-05-13] MEDS: ACETAMINOPHEN 500 MG TAB PO PRN (14:41)
[2018-05-13] MEDS: ONDANSETRON 4 MG/2 ML VIAL IV PRN (15:09)
[2018-05-13] MEDS ORDERED: RIVAROXABAN 10 MG TABLET PO SCH (17:00)
--- NOTE | 2018-05-13 19:39 | PN ---
Date of Progress Note: 05/13/2018 Subjective: The patient is seen and examined, chart reviewed, and case discussed with RN. The patient feels good. Denies any pain, weakness. No abnormalities of her speech. The patient about to undergo EEG Procedure. Review of Systems: Negative except as above. Medications: List reviewed. Objective: Vital Signs: Temperature 97.9, heart rate 93, blood pressure 152/82 , respirations 16, O2 97% on room air. General: Awake, alert, oriented x3, not in any acute distress. Elderly female. CV: S1, S2. No murmurs. Pulses present. Respiratory: Clear to auscultation bilaterally. No wheezing. No stridor. Gastrointestinal: Abdomen is soft, nontender, nondistended. Positive bowel sounds. Extremities: No clubbing, cyanosis, or edema. Neurologic: Nonfocal. Speech is normal. Laboratory Data: Sodium 137, potassium 4, chloride 102, CO2 28, BUN 10, creatinine 0.9, glucose 138, calcium 8.7, and albumin 2.9. WBC 7.1, H and H 10.3, 29.9, and platelets 234. Echocardiogram shows EF of 61%. Left ventricular hypertrophy, concentric. Mild aortic stenosis. 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 No acute infarct is seen. No acute abnormalities of the arteries of the head and neck seen. Assessment And Plan: An 87-year-old female with; 1. Transient ischemic attack. We will continue with stroke guidelines. The patient does take Xarelto. Workup completed. MRI is negative. Appreciate Dr. Segovia's input. EEG is pending to rule out seizure. 2. Essential hypertension. Resume home medications as appropriate. 3. Diabetes mellitus type 2 with long-term use of insulin with hyperglycemia. We will continue medications. Monitor the blood glucose level. 4. Dyslipidemia. Statin. 5. Paroxysmal atrial fibrillation, on Xarelto, renally dosed. 6. Gastrointestinal and deep venous thrombosis prophylaxis with PPI and Lovenox. 7. History of cerebrovascular accident. 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 8. Hypertensive heart disease 9 Mild aortic stenosis Plan: PT eval, speech eval. Follow up with Neurology recommendations. Likely discharge in the next 24 hours. /DAVIDL Voice ID: [id number] Report ID: [id number] MTDD
[2018-05-13] MEDS: ATORVASTATIN 20 MG TAB PO SCH (20:35)
--- NOTE | 2018-05-14 01:40 | PN ---
Date of Progress Note: 05/13/2018 Reason: TIA. Interval History: The patient is stable. No recurrent TIA like symptoms noted. The EEG was normal. Labs reviewed. Her GFR is improved today. She is unclear what her baseline renal function represe nts. Physical Examination: General: On exam, she is awake, alert, oriented. Neurologic: Incomplete left hemianopsia to confrontation. Ocular motion full. Face symmetric. Ext remities' strength full. No cortical extinction. Reflexes symmetric. Cerebellar exam demonstrates no ataxia. Impression: Transient ischemic attack. Plan: Continue Xarelto. Repeat renal function as an outpatient to adjust dose accordingly. She manisha uld see Ophthalmology to have formal rushing. She needs 135 degrees of vision in order to safely driv e a motor vehicle and she could safely be discharged to home tomorrow. Repeat basic metabolic is karla eduled for tomorrow. The renal function remains with GFR over 50, may benefit from a slight increase in the Xarelto dosing. I would not combine it with aspirin intermediate card tender. Thank you for the consult. TINO Voice ID: [id number] Report ID: [id number]
[2018-05-14] MEDS: ACETAMINOPHEN 500 MG TAB PO PRN (05:07)
[2018-05-14] MEDS: NA CHLORIDE 0.9% 1,000 ML IV SCH ×2 (05:08→08:00)
[2018-05-14 06:42] LABS: Potassium 3.8 mmol/L (3.5-5.1)
[2018-05-14] MEDS: INSULIN -REGULAR HUMAN 50 UNIT/0.5 ML ML SQ SCH (07:30)
[2018-05-14] MEDS: GLIMEPIRIDE 2 MG TABLET PO SCH (08:13)
[2018-05-14] MEDS: ATENOLOL 50 MG TAB PO SCH (08:13)
[2018-05-14] MEDS: LISINOPRIL 20 MG TAB PO SCH (08:14)
[2018-05-14] MEDS: Ciprofloxacin 200mg IV 200 MG/100 ML IV.SOLN. IV SCH (08:14)
[2018-05-14] MEDS: RALOXIFENE HCL 60 MG TAB PO SCH (08:14)
[2018-05-14] MEDS ORDERED: POTASSIUM CL SA 10 MEQ TAB PO ONE (09:00)
--- NOTE | 2018-05-14 09:51 | EEG ---
CHART: [id number] TEST ID#: [id number] DATE OF STUDY: 05/13/2018 THE EEG WAS RECORDED PORTABLE IN THE PATIENTS ROOM ON A 17 CHANNEL MACHINE. ELECTRODES WERE APPLIED IN THE USUAL MANNER USING THE INTERNATIONAL 10-20 SYSTEM. THE WAKING BACKGROUND RHYTHM IN THIS RECORD CONSISTS OF FAIRLY WELL DEVELOPED AND FAIRLY WELL ORGANIZED WAVES OF 9 HZ., MAXIMAL IN THE POSTERIOR HEAD REGIONS WHICH ATTENUATE NORMALLY WITH EYE OPENING. IN DROWSINESS THE BACKGROUND DROPS TO 8 HZ. THERE ARE NO FOCAL OR LATERALIZING FEATURES. NO EPILEPTIFORM ACTIVITY APPEARS. SLEEP DID NOT OCCUR. HYPERVENTILATION WAS NOT PERFORMED. PHOTIC STIMULATION PRODUCED FAIR DRIVING BILATERALLY. IMPRESSION: NORMAL EEG FOR THE AGE OF THE PATIENT IN WAKE AND DROWSINESS.
--- NOTE | 2018-05-14 19:37 | DS ---
Date of Discharge: 05/14/2018 Consultants: Jerry Segovia M.D. with Neurology. Admitting Diagnoses: 1.Transient ischemic attack, rule out cerebrovascular accident. 2.Essential hypertension. 3.Diabetes mellitus type 2 without long-term use of insulin with hyperglycemia. 4.Dyslipidemia. 5.Paroxysmal atrial fibrillation. Discharge Diagnoses: 1.Transient ischemic attack. Cerebrovascular accident ruled out. Continue Xarelto. 2.Essential hypertension, stable. 3.Diabetes mellitus type 2 with long-term use of insulin with hyperglycemia. 4.Dyslipidemia, on statin. 5.Paroxysmal atrial fibrillation, on Xarelto. 6.History of cerebrovascular accident in the past. MRI shows right old temporal lobe infarct. 7.Hypertensive heart disease. 8.Mild aortic stenosis. Hospital Course: The patient is an 87-year-old female with history of hypertension, diabetes, dyslip idemia, atrial fibrillation, on Xarelto, comes in with left-sided facial drop and left arm weakness. The patient was outside of the window and had some contraindications to tPA, was found to be hyperte nsive with blood pressure 196/110. She was admitted for rule out stroke, possible TIA. A CT head wa s done, which was remarkable for right encephalomalacia in the occipital lobe with no acute hemorrhag e. Workup was initiated. The patient was seen by neurologist, Dr. Segovia. MRA, MRI of the head was done, which showed the old right occipital infarct, did not show any acute CVA. No acute abnormaliti es of the arteries of the head and neck was seen. The patient did have an abnormal finding on her ch est x-ray with a possible 2-cm opacity in the medial right upper lobe. Therefore, CT chest was done to rule out mass. CT scan of the chest did not show any acute mass. The chest radiograph abnormalit y was likely caused by a very tortuous innominate artery. Carotid artery ultrasound was also done as part of the workup, showed mild plaque within the carotid arteries without evidence of hemodynamical ly significant stenosis. Echocardiogram was done, which showed 61% EF, did show some left ventricula r hypertrophy and aortic stenosis, which was mild. The patient also had EEG to rule out seizure, manisha wed normal EEG for the age of the patient. The patient's medications were adjusted, then she had res olution of her symptoms, not have any further left-sided facial droop or weakness. She was able to a mbulate with her walker. The patient was then cleared for discharge and was sent home in stable cond ition. Activity: As tolerated with fall precautions. Diet: Diabetic. Followup: Follow up with primary care physician in 2-3 days. Follow up with neurologist, Dr. Segovia in 2 weeks. Follow with refrigerator cabinetmaker in 1 week for eye exam. Return to ER for worsening conditio n. Physical Examination: General: Awake, alert, oriented, no acute distress. CV: S1, S2, irregularly irregular. Peripheral pulses present. Respiratory: Moving air well bilaterally. No wheezing. Gastrointestinal: Abdomen is soft, nontender, nondistended. Positive bowel sounds. Extremities: No clubbing, cyanosis, or edema. Neurologic: Nonfocal. No facial asymmetry. Normal speech. /LORI Voice ID: [id number] Report ID: [id number]
== END 2018-05-14 11:28 | disposition home or self-care (01) ==
LOC: ER 03:21 → INTOOBSV 04:18 → ERHOLD 04:18 → 4TH 06:14
PROVIDERS: ADMIT Internal Medicine; ATTEND Internal Medicine
DX: G45.9 Transient cerebral ischemic attack, unspecified (principal); I10 Essential (primary) hypertension; E11.65 Type 2 diabetes mellitus with hyperglycemia; E78.5 Hyperlipidemia, unspecified; I48.0 Paroxysmal atrial fibrillation; I11.9 Hypertensive heart disease without heart failure; I35.0 Nonrheumatic aortic (valve) stenosis; Z86.73 Personal history of transient ischemic attack (TIA), and cerebral infarction without residual deficits; Z79.01 Long term (current) use of anticoagulants; Z79.4 Long term (current) use of insulin; Z88.2 Allergy status to sulfonamides
CPT/HCPCS: 36415 ×3; 70450; 70544; 70549; 70553; 71045; 71250; 80048 ×2; 80053; 80061; 81003; 82962 ×10; 83735 ×3; 84484; 85025 ×2; 85610; 85730; 93005; 93306; 93880; 95819; 96361; 96365; 96366; 96375; 97116; 97163; 97530; 99285; A9577; G0378 ×2; J0744 ×5; J2405 ×3; J3475 ×2; J7030 ×3